=== PATIENT | female | born 1985 | race Caucasian/White ===

== ENCOUNTER 2016-12-01 16:55 | Emergency (ER) | payer MEDICAID ==
[~2016-12-01] VITALS: Ht 154.9 cm; Wt 48.3 kg
[~2016-12-01 16:55] MED LIST: IBUP-1222 PO; PREN1TAB28 PO
[2016-12-01 17:45] LABS: HEMATOCRIT 44.3 % (34.6-47.8); HEMOGLOBIN 14.9 g/dL (11.7-16.4); WHITE BLOOD COUNT 14.9 x10^3/uL (3.4-10)
[2016-12-01 17:53] LABS: BLOOD UREA NITROGEN 14 mg/dL (7-18)
[2016-12-01 17:57] LABS: ASPARTATE AMINO TRANSFERASE 8 U/L (15-37)
[2016-12-01 20:34] VITALS: BP 120/74
== END 2016-12-01 20:37 | disposition home or self-care (01) ==
LOC: ED 20:31
DX: O26.891 Other specified pregnancy related conditions, first trimester (principal); R10.13 Epigastric pain; Z3A.01 Less than 8 weeks gestation of pregnancy
CPT/HCPCS: 36415; 76801; 80053; 81003; 83690; 84702; 85025; 86677; 99285